=== PATIENT | male | born 1980 | race Asian ===

== ENCOUNTER 2019-01-19 21:19 | Emergency (ER) | payer OTHER ==
[~2019-01-19] VITALS: Ht 167.6 cm; Wt 78.5 kg
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
[2019-01-19 22:31] VITALS: BP 136/89
[2019-01-19] MEDS ORDERED: Ketorolac 60mg Inj IM ONE (23:00)
[2019-01-19] MEDS ORDERED: IBUPROFEN600 MG ORAL (23:51)
[2019-01-19] MEDS ORDERED: CYCLOBENZAPRINE10 MG ORAL (23:51)
[2019-01-19 23:58] VITALS: BP 124/75
--- NOTE | 2019-01-19 23:58 | NUR ---
ER DISCHARGE NOTE: Patient is cleared to be discharged per ERMD, pt is aox4, on room air, with stable vital signs. pt was given dc and prescription instructions, pt was able to verbalize understanding, pt id band removed. pt is able to ambulate with steady gait. pt took all belongings.
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
== END 2019-01-19 23:59 | disposition home or self-care (01) ==
LOC: EMR 23:59
DX: S16.1XXA Strain of muscle, fascia and tendon at neck level, initial encounter (principal); V43.52XA Car driver injured in collision with other type car in traffic accident, initial encounter; Y92.410 Unspecified street and highway as the place of occurrence of the external cause; M79.605 Pain in left leg; M79.602 Pain in left arm
CPT/HCPCS: 70450; 72125; 72131; 96372; 99284